=== PATIENT | female | born 1975 | race Caucasian/White ===

== ENCOUNTER 2019-12-21 16:11 | Inpatient (IN) | payer OTHER ==
[~2019-12-21] VITALS: Ht 170.2 cm; Wt 90.7 kg
[~2019-12-21 16:11] MED LIST: CLONAZEPAM1 MG PO; COZAAR25 MG PO; FOLIC ACID PO; NORVASC5 MG PO; SEROQUEL XR400 MG PO; TRAZODONE HCL150 MG PO; WELL PO; ZOCOR20 MG PO
[2019-12-25] MEDS ORDERED: FOLIC ACID0.8 M1 (09:55)
[2019-12-25] MEDS ORDERED: WELLBUTRIN XL150 M1 (10:03)
[2019-12-27] MEDS ORDERED: PERCOCET 5-3251 EACH PO (12:25)
[2019-12-27] MEDS ORDERED: ELIQUIS2.5 MG PO (12:25)
[2019-12-27] MEDS ORDERED: DUI500 PO (12:25)
[2019-12-28] MEDS ORDERED: DUI500 PO (08:23)
[2019-12-28] MEDS ORDERED: ELIQUIS2.5 MG PO (08:23)
[2019-12-28] MEDS ORDERED: PERCOCET 5-3251 EACH PO (08:23)
== END 2019-12-28 13:56 | DRG 470 ==
LOC: EDBD → O/R 12-25 07:10 → SURG 12-25 07:10 → SURH 12-25 10:57 → SURG 12-25 15:21 → SURH 12-25 18:15 → SURG 12-28 13:56
PROVIDERS: ADMIT Orthopaedic Surgery
PROC: 0MNP0ZZ Release Left Knee Bursa and Ligament, Open Approach (ICD-10-PCS; 2019-12-25)
PROC: 0SRD0J9 Replacement of Left Knee Joint with Synthetic Substitute, Cemented, Open Approach (ICD-10-PCS; principal; 2019-12-25 18:15)
DX: M17.12 Unilateral primary osteoarthritis, left knee (principal); D62 Acute posthemorrhagic anemia; M22.12 Recurrent subluxation of patella, left knee; E66.09 Other obesity due to excess calories; I10 Essential (primary) hypertension

== ENCOUNTER 2020-06-24 18:06 | Emergency (ER) | payer OTHER ==
[~2020-06-24] VITALS: Ht 170.2 cm; Wt 89.8 kg
[~2020-06-24 18:06] MED LIST changes: +DUI500 PO; +ELIQUIS2.5 MG PO; +FOLIC ACID0.8 M1; +PERCOCET 5-3251 EACH PO; +WELLBUTRIN XL150 M1
== END 2020-06-24 21:37 | disposition home or self-care (01) ==
LOC: ER 18:06
DX: S52.132A Displaced fracture of neck of left radius, initial encounter for closed fracture (principal); M79.622 Pain in left upper arm; G89.11 Acute pain due to trauma; G43.809 Other migraine, not intractable, without status migrainosus; W18.09XA Striking against other object with subsequent fall, initial encounter; Y93.89 Activity, other specified; Y92.89 Other specified places as the place of occurrence of the external cause; Y99.8 Other external cause status

== ENCOUNTER 2020-08-21 19:49 | Emergency (ER) | payer OTHER ==
[~2020-08-21] VITALS: Ht 170.2 cm; Wt 90.7 kg
== END 2020-08-21 23:41 | disposition home or self-care (01) ==
LOC: ER 19:49
DX: S92.411A Displaced fracture of proximal phalanx of right great toe, initial encounter for closed fracture (principal); W22.8XXA Striking against or struck by other objects, initial encounter; Y93.89 Activity, other specified; Y92.89 Other specified places as the place of occurrence of the external cause; Y99.8 Other external cause status; G43.809 Other migraine, not intractable, without status migrainosus

== ENCOUNTER → 2021-07-06 | Emergency (ER) | payer OTHER ==
[~2021-07-06] VITALS: Ht 170.2 cm; Wt 76.2 kg
[~2021-07-06] MED LIST changes: +AMITRIPTYLINE H50 MG PO; +PAXIL20 MG PO
== END | disposition home or self-care (01) ==
LOC: ER 18:47
DX: G43.809 Other migraine, not intractable, without status migrainosus (principal); K61.2 Anorectal abscess